=== PATIENT | female | born 1975 | race Caucasian/White ===

== ENCOUNTER 2021-01-22 21:38 | Emergency (ER) | payer OTHER ==
[2021-01-22] MEDS ORDERED: Morphine 4 MG/ML VIAL ONE (22:04)
[2021-01-22] MEDS ORDERED: Morphine 2 MG/ML VIAL ONE (22:05)
[2021-01-22] MEDS ORDERED: Dexamethasone 4 MG TAB ONE (22:05)
[2021-01-22] MEDS ORDERED: Ketorolac Tromethamine 60 MG/2 ML VIAL ONE (22:05)
== END 2021-01-22 22:36 | disposition home or self-care (01) ==
LOC: MADERS 21:38
DX: G90.50 Complex regional pain syndrome I, unspecified (principal)
CPT/HCPCS: 96372; 99283; J1885; J2270; J8540

== ENCOUNTER 2021-06-30 20:08 | Emergency (ER) | payer OTHER ==
[2021-06-30 22:30] LABS: #Basophils 0.1 thou/uL (0.0-0.2); #Eosinphils 0.2 thou/uL (0.0-0.7); #Lymphocytes 3.4 thou/uL (1.20-3.40); #Monocytes 0.4 thou/uL (0.11-0.59); #Neutrophils 6.3 thou/uL (1.40-6.50); %Basophils 0.5 % (0.0-1.0); %Eosinophils 2.1 % (0.0-10.0); %Lymphocytes 32.7 % (21.0-51.0); %Monocytes 3.8 % (0.0-10.0); %Neutrophils 60.9 % (42.0-75.0); Hemoglobin 14.9 g/dL (12.0-16.0); Mean Corpuscular HGB CONC 31.7 g/dL (32.0-36.0); Mean Corpuscular Hemoglobin 31.9 pg (27.0-31.0); Mean Corpuscular Volume 100.5 fL (78.0-98.0); Mean Platelet Volume 7.9 fL (7.4-10.4); Platelet Count 404 thou/uL (130-400); RBC Distribution Width 11.4 % (11.5-14.5); Red Blood Cell (RBC) Count 4.69 mill/uL (4.20-5.40); White Blood Cell (WBC) Count 10.3 thou/uL (4.8-10.8)
[2021-06-30 22:50] LABS: ALT (SGPT) 16 U/L (8-55); AST (SGOT) 15 U/L (5-34); Alkaline Phosphatase 60 U/L (40-110); Anion Gap 13 mmol/L (10-20); BUN (Urea Nitrogen) 7 mg/dL (7.0-18.7); Bilirubin, Total 0.6 mg/dL (0.2-1.2); Calc. Creatinine Clearance 0 mL/min (70-130); Calcium 9.3 mg/dL (7.8-10.44); Carbon Dioxide 26 mmol/L (22-29); Chloride 104 mmol/L (98-107); Globulin 2.8 g/dL (2.4-3.5); Glucose 91 mg/dL (70-105); Lipase 31 U/L (8-78); Protein, Total 6.8 g/dL (6.0-8.3); Prothrombin Time 12.7 sec (12.0-14.7); Sodium 139 mmol/L (136-145)
[2021-06-30 22:50] LABS: Bilirubin Negative (Negative); Blood, Urine Trace (Negative); Clarity Clear (Clear); Glucose, Urine (Dipstick) Negative (Negative); Ketone, Urine Negative (Negative); Leukocyte Trace (Negative); Nitrite Negative (Negative); Protein, Urine (Dipstick) Negative (Neg-Trace); Specific Gravity, Urine 1.015 (1.005-1.030); Urobilinogen 0.2 mg/dL (Less than 2)
[2021-06-30 22:54] LABS: Pregnancy Test - Urine (BHCG) Negative (Negative); Pregu Control Background? CLEAR/WHITE (CLR/WHITE); Pregu Control Bar Appear? YES (CONTROL BAR); Specific Gravity 1.015 (1.002-1.036)
[2021-06-30 23:10] LABS: Bacteria/HPF Rare-Few HPF (None Seen); RBC/HPF 0-3 HPF (0-3); Transitional Epithelial 0-3 HPF (None Seen)
[2021-07-01] MEDS ORDERED: Ondansetron PF 4 MG/2 ML Vial ONE (00:08)
== END 2021-07-01 00:55 | disposition home or self-care (01) ==
LOC: MADERS 20:08
DX: K29.70 Gastritis, unspecified, without bleeding (principal); F17.210 Nicotine dependence, cigarettes, uncomplicated
CPT/HCPCS: 80053; 81003; 81015; 81025; 83605; 83690; 85025; 85610; 93005; 96374; J2405

== ENCOUNTER 2022-02-05 11:07 | Emergency (ER) | payer OTHER | END 2022-02-05 11:40 | disposition home or self-care (01) | LOC: MADERS 11:07 | DX: M54.50 Low back pain, unspecified (principal); G89.29 Other chronic pain; F17.210 Nicotine dependence, cigarettes, uncomplicated; Z79.899 Other long term (current) drug therapy | CPT/HCPCS: 99281 ==

== ENCOUNTER 2022-05-08 22:48 | Emergency (ER) | payer OTHER ==
[~2022-05-08 22:48] MED LIST: Sodium Chloride 0.9% 100 ML BAG ONE
[2022-05-08 23:28] LABS: Bilirubin Negative (Negative); Blood, Urine Trace (Negative); Glucose, Urine (Dipstick) Negative (Negative); Ketone, Urine Negative (Negative); Leukocyte Large (Negative); Nitrite Negative (Negative); Protein, Urine (Dipstick) Negative (Neg-Trace); Urobilinogen 0.2 mg/dL (Less than 2)
[2022-05-08 23:35] LABS: Bacteria/HPF 1+ HPF (None Seen); Clarity Cloudy (Clear); RBC/HPF 0-3 HPF (0-3); WBC/HPF Greater than 50 HPF (0-3)
[2022-05-09] MEDS ORDERED: Morphine 4 MG/ML VIAL ONE ×2 (00:16→01:47)
[2022-05-09 00:21] LABS: #Basophils 0.1 thou/uL (0.0-0.2); #Eosinphils 0.2 thou/uL (0.0-0.7); #Lymphocytes 4.5 thou/uL (1.20-3.40); #Monocytes 0.6 thou/uL (0.11-0.59); #Neutrophils 5.9 thou/uL (1.40-6.50); %Basophils 1.1 % (0.0-1.0); %Eosinophils 1.7 % (0.0-10.0); %Lymphocytes 39.7 % (21.0-51.0); %Monocytes 5.5 % (0.0-10.0); %Neutrophils 51.9 % (42.0-75.0); Hemoglobin 14.7 g/dL (12.0-16.0); Mean Corpuscular HGB CONC 33.5 g/dL (32.0-36.0); Mean Corpuscular Hemoglobin 30.2 pg (27.0-31.0); Mean Corpuscular Volume 90.4 fL (78.0-98.0); Mean Platelet Volume 7.3 fL (7.4-10.4); Platelet Count 448 thou/uL (130-400); RBC Distribution Width 11.7 % (11.5-14.5); Red Blood Cell (RBC) Count 4.87 mill/uL (4.20-5.40); White Blood Cell (WBC) Count 11.4 thou/uL (4.8-10.8)
[2022-05-09 00:38] LABS: ALT (SGPT) 17 U/L (8-55); AST (SGOT) 13 U/L (5-34); Albumin 4.1 g/dL (3.5-5.0); Alkaline Phosphatase 61 U/L (40-110); Anion Gap 15 mmol/L (10-20); BUN (Urea Nitrogen) 11 mg/dL (7.0-18.7); Bilirubin, Total 0.3 mg/dL (0.2-1.2); Calc. Creatinine Clearance 0 mL/min (70-130); Calcium 9.2 mg/dL (7.8-10.44); Carbon Dioxide 22 mmol/L (22-29); Chloride 107 mmol/L (98-107); Globulin 3.1 g/dL (2.4-3.5); Glucose 90 mg/dL (70-105); Lipase 68 U/L (8-78); Protein, Total 7.2 g/dL (6.0-8.3); Sodium 140 mmol/L (136-145)
[2022-05-09 01:15] LABS: Pregnancy Test - Urine (BHCG) Negative (Negative); Pregu Control Background? CLEAR/WHITE (CLR/WHITE); Pregu Control Bar Appear? YES (CONTROL BAR); Specific Gravity 1.012 (1.002-1.036)
[2022-05-09] MEDS ORDERED: cefTRIAXone\\ROCEPHIN 2 GM VIAL ONE (02:27)
== END 2022-05-09 03:35 | disposition home or self-care (01) ==
LOC: MADERS 22:48
DX: N10 Acute pyelonephritis (principal); N20.0 Calculus of kidney; E78.5 Hyperlipidemia, unspecified; F17.210 Nicotine dependence, cigarettes, uncomplicated; Z79.899 Other long term (current) drug therapy
CPT/HCPCS: 80053; 81003; 81015; 81025; 83605; 83690; 85025; 87040; 87077; 87086; 87186; 96365; 96375; 96376; J0696; J2270; J3490

== ENCOUNTER 2023-01-18 15:30 | Emergency (ER) | payer OTHER ==
[~2023-01-18 15:30] MED LIST changes: +Iopamidol 370 76% 100 ML VIAL ONE; -Sodium Chloride 0.9% 100 ML BAG ONE
[2023-01-18] MEDS ORDERED: Sodium Chloride 0.9% 1,000 ML ONE (15:47)
[2023-01-18] MEDS ORDERED: Fentanyl 100 MCG/2 ML VIAL ONE (15:47)
[2023-01-18] MEDS ORDERED: Ondansetron PF 4 MG/2 ML Vial ONE (15:47)
[2023-01-18 15:52] LABS: Bilirubin Negative (Negative); Blood, Urine Negative (Negative); Glucose, Urine (Dipstick) Negative (Negative); Ketone, Urine Negative (Negative); Leukocyte Negative (Negative); Nitrite Negative (Negative); Protein, Urine (Dipstick) Negative (Neg-Trace); Specific Gravity, Urine 1.015 (1.005-1.030); Urobilinogen 0.2 mg/dL (Less than 2)
[2023-01-18 15:53] LABS: Clarity Hazy (Clear)
[2023-01-18 16:11] LABS: #Basophils 0.1 thou/uL (0.0-0.2); #Eosinphils 0.1 thou/uL (0.0-0.7); #Lymphocytes 2.7 thou/uL (1.20-3.40); #Monocytes 0.4 thou/uL (0.11-0.59); #Neutrophils 3.6 thou/uL (1.40-6.50); %Basophils 0.9 % (0.0-1.0); %Eosinophils 1.9 % (0.0-10.0); %Lymphocytes 38.9 % (21.0-51.0); %Monocytes 5.5 % (0.0-10.0); %Neutrophils 52.7 % (42.0-75.0); Hemoglobin 12.4 g/dL (12.0-16.0); Mean Corpuscular HGB CONC 33.2 g/dL (32.0-36.0); Mean Corpuscular Hemoglobin 29.2 pg (27.0-31.0); Mean Corpuscular Volume 87.9 fl (78.0-98.0); Mean Platelet Volume 6.4 fL (7.4-10.4); Platelet Count 441 10x3/uL (130-400); RBC Distribution Width 11.7 % (11.5-14.5); Red Blood Cell (RBC) Count 4.26 mill/uL (4.20-5.40); White Blood Cell (WBC) Count 6.9 10x3/uL (4.8-10.8)
[2023-01-18 16:26] LABS: ALT (SGPT) 19 U/L (8-55); AST (SGOT) 16 U/L (5-34); Albumin 4.1 g/dL (3.5-5.0); Alkaline Phosphatase 60 U/L (40-110); Anion Gap 12 mmol/L (10-20); BUN (Urea Nitrogen) 9 mg/dL (7.0-18.7); Bilirubin, Total 0.3 mg/dL (0.2-1.2); Calc. Creatinine Clearance 0 mL/min (70-130); Calcium 8.9 mg/dL (7.8-10.44); Carbon Dioxide 25 mmol/L (22-29); Chloride 107 mmol/L (98-107); Estimated GFR 98; Glucose 95 mg/dL (70-105); Lipase 57 U/L (8-78); Protein, Total 7.1 g/dL (6.0-8.3); Sodium 140 mmol/L (136-145)
== END 2023-01-18 17:48 | disposition home or self-care (01) ==
LOC: MADERS 15:30
DX: R19.7 Diarrhea, unspecified (principal); R11.0 Nausea; E78.5 Hyperlipidemia, unspecified; F17.210 Nicotine dependence, cigarettes, uncomplicated
CPT/HCPCS: 74177; 80053; 81003; 83605; 83690; 85025; 96361; 96374; 96375; J2405; J3010; J7050; Q9967

== ENCOUNTER 2023-07-27 13:24 | Emergency (ER) | payer OTHER ==
[2023-07-27] MEDS ORDERED: Clopidogrel Bisulfate 75 MG TAB ONE (13:53)
[2023-07-27 14:06] LABS: ALT (SGPT) 18 U/L (8-55); AST (SGOT) 20 U/L (5-34); Alkaline Phosphatase 97 U/L (40-110); Anion Gap 13 mmol/L (10-20); BUN (Urea Nitrogen) 7 mg/dL (7.0-18.7); Bilirubin, Total 0.4 mg/dL (0.2-1.2); Calc. Creatinine Clearance 0 mL/min (70-130); Calcium 9.2 mg/dL (7.8-10.44); Carbon Dioxide 21 mmol/L (22-29); Chloride 112 mmol/L (98-107); Estimated GFR 97; Glucose 111 mg/dL (70-105); Sodium 142 mmol/L (136-145)
[2023-07-27 14:07] LABS: Anisocytosis SLIGHT = 6-15 cells (100X) (0-5/hpf); Band 5 % (5-11); Hematocrit 44.2 % (36.0-47.0); Hemoglobin 14.5 g/dL (12.0-16.0); Lymphocytes 30 % (21-51); MDiff Complete? YES; Manual Diff?? YES; Mean Corpuscular HGB CONC 32.8 g/dL (32.0-36.0); Mean Corpuscular Hemoglobin 30.2 pg (27.0-31.0); Mean Platelet Volume 8.7 fL (7.4-10.4); Monocytes 2 % (0-10); Neutrophil 63 % (42-75); Platelet Count 419 10x3/uL (130-400); RBC Distribution Width 14.1 % (11.5-14.5); White Blood Cell (WBC) Count 8.1 10x3/uL (4.8-10.8)
[2023-07-27 14:08] LABS: Platelet Adequacy Comment Appears Increased
[2023-07-27 14:09] LABS: Troponin I 0.011 ng/mL (< 0.028)
[2023-07-27] MEDS ORDERED: Morphine 4 MG/ML VIAL ONE (14:15)
[2023-07-27] MEDS ORDERED: Ondansetron PF 4 MG/2 ML Vial ONE (14:16)
[2023-07-27] MEDS ORDERED: Morphine 2 MG/ML VIAL ONE (14:16)
[2023-07-27] MEDS ORDERED: Nitroglycerin 2% Ointment 1 INCH/1 GM Packet ONE (15:16)
[2023-07-27] MEDS ORDERED: Nitroglycerin 0.4 MG TAB 1 EACH ONE (15:16)
== END 2023-07-27 15:55 | disposition short-term general hospital (02) ==
LOC: MADERS 13:24
DX: R07.2 Precordial pain (principal); R94.31 Abnormal electrocardiogram [ECG] [EKG]; F17.210 Nicotine dependence, cigarettes, uncomplicated
CPT/HCPCS: 71046; 80053; 84484; 85025; 93005; 96374; 96375; J2270; J2272; J2405

== ENCOUNTER 2023-09-01 08:37 | Emergency (ER) | payer OTHER ==
[2023-09-01 09:25] LABS: #Basophils 0.1 thou/uL (0.0-0.2); #Eosinphils 0.1 thou/uL (0.0-0.7); #Lymphocytes 2.3 thou/uL (1.20-3.40); #Monocytes 0.5 thou/uL (0.11-0.59); #Neutrophils 4.8 thou/uL (1.40-6.50); %Basophils 0.7 % (0.0-1.0); %Eosinophils 1.8 % (0.0-10.0); %Lymphocytes 29.3 % (21.0-51.0); %Monocytes 6.1 % (0.0-10.0); %Neutrophils 62.1 % (42.0-75.0); Hematocrit 45.5 % (36.0-47.0); Hemoglobin 14.7 g/dL (12.0-16.0); Mean Corpuscular HGB CONC 32.3 g/dL (32.0-36.0); Mean Corpuscular Hemoglobin 30.8 pg (27.0-31.0); Mean Corpuscular Volume 95.1 fl (78.0-98.0); Mean Platelet Volume 8.2 fL (7.4-10.4); Platelet Count 389 10x3/uL (130-400); RBC Distribution Width 12.4 % (11.5-14.5); Red Blood Cell (RBC) Count 4.79 mill/uL (4.20-5.40); White Blood Cell (WBC) Count 7.8 10x3/uL (4.8-10.8)
[2023-09-01 09:43] LABS: ALT (SGPT) 16 U/L (8-55); AST (SGOT) 16 U/L (5-34); Albumin 4.1 g/dL (3.5-5.0); Alkaline Phosphatase 95 U/L (40-110); Anion Gap 16 mmol/L (10-20); BHCG - Serum Negative (NEGATIVE); BUN (Urea Nitrogen) 9 mg/dL (7.0-18.7); Bilirubin, Total 0.6 mg/dL (0.2-1.2); Calc. Creatinine Clearance 0 mL/min (70-130); Calcium 9.4 mg/dL (7.8-10.44); Carbon Dioxide 18 mmol/L (22-29); Chloride 108 mmol/L (98-107); Estimated GFR 96; Globulin 3.1 g/dL (2.4-3.5); Glucose 100 mg/dL (70-105); Magnesium 2.2 mg/dL (1.6-2.6); Potassium 4.1 mmol/L (3.5-5.1); Pregs Control Background? CLEAR/WHITE (CLR/WHITE); Pregs Control Bar Appear? YES (CONTROL BAR); Protein, Total 7.2 g/dL (6.0-8.3); Sodium 138 mmol/L (136-145)
[2023-09-01 09:44] LABS: Troponin I Less than 0.010 ng/mL (< 0.028)
[2023-09-01] MEDS ORDERED: Sodium Chloride 0.9% 1,000 ML ONE (10:05)
[2023-09-01] MEDS ORDERED: ALPRAZolam 0.5 MG TAB ONE ×2 (10:19→10:53)
[2023-09-01 12:04] LABS: Troponin I Less than 0.010 ng/mL (< 0.028)
== END 2023-09-01 12:27 | disposition home or self-care (01) ==
LOC: MADERS 08:37
DX: F41.0 Panic disorder [episodic paroxysmal anxiety] (principal); F17.210 Nicotine dependence, cigarettes, uncomplicated; K21.9 Gastro-esophageal reflux disease without esophagitis; E66.01 Morbid (severe) obesity due to excess calories; Z79.899 Other long term (current) drug therapy
CPT/HCPCS: 71045; 71275; 80053; 83735; 83880; 84484; 84703; 85025; 93005; J7050; Q9967

== ENCOUNTER 2024-04-17 21:00 | Emergency (ER) | payer OTHER ==
[2024-04-17] MEDS ORDERED: HYDROcodone/Acetaminophen 10/325 mg Tablet ONE (21:24)
== END 2024-04-17 22:44 | disposition home or self-care (01) ==
LOC: MADERS 21:00
DX: S93.401A Sprain of unspecified ligament of right ankle, initial encounter (principal); F17.210 Nicotine dependence, cigarettes, uncomplicated; X58.XXXA Exposure to other specified factors, initial encounter